=== PATIENT | female | born 1990 | race Caucasian/White ===

== ENCOUNTER 2016-10-01 09:51 | Emergency (ER) | payer OTHER ==
[~2016-10-01] VITALS: Wt 89.0 kg
[2016-10-01] MEDS ORDERED: SOD CHLORIDE 0.9% 1,000 ML IV STA (10:18)
[2016-10-01] MEDS ORDERED: morphine 4 MG/ML VIAL IV STA (10:18)
[2016-10-01] MEDS ORDERED: ONDANSETRON 4 MG INJ IV STA (10:18)
[2016-10-01 10:46] LABS: BASOPHILS % 0.3 % (0.0-2.0); EOSINOPHILS % 0.2 % (0.0-7.0); HEMATOCRIT 42.8 % (37.0-47.0); HEMOGLOBIN 14.5 g/dl (12.0-16.0); LYMPHOCYTES # 1.7 10^3/ul (0.8-2.9); MEAN CORPUSCULAR HEMOGLOBIN 29.8 pg (29.0-33.0); MEAN CORPUSCULAR HGB CONC 33.9 g/dl (32.0-37.0); MEAN CORPUSCULAR VOLUME 87.9 fl (82.0-101.0); MEAN PLATELET VOLUME 11.1 fl (7.4-10.4); MONOCYTE # 0.4 10^3/ul (0.3-0.9); MONOCYTES % 4.1 % (0.0-11.0); NEUTROPHIL # 8.2 10^3/ul (1.6-7.5); NEUTROPHILS % 79.2 % (39.0-77.0); PLATELET COUNT 261 10^3/UL (140-415); RED BLOOD COUNT 4.87 10^6/ul (4.20-5.40); RED CELL DISTRIBUTION WIDTH 13.2 % (11.5-14.5); WHITE BLOOD COUNT 10.4 10^3/ul (4.8-10.8)
[2016-10-01 10:48] LABS: ADD SCAN DIFF NO
[2016-10-01 11:08] LABS: ALBUMIN 5.3 g/dl (3.3-4.9); ALBUMIN/GLOBULIN RATIO 1.35; BILIRUBIN,INDIRECT 0.3 mg/dl (0-1.1); BILIRUBIN,TOTAL 0.3 mg/dl (0.2-1.3); CREATININE 0.76 mg/dl (0.44-1.00); TOTAL PROTEIN 9.2 g/dl (6.1-8.1)
--- NOTE | 2016-10-01 11:16 | RADRPT ---
PROCEDURE: Abdominal Ultrasound (right upper quadrant). CLINICAL INDICATION: Right upper quadrant pain TECHNIQUE: Multiple real-time longitudinal and transverse images of the right upper quadrant of th e abdomen were acquired utilizing a curved array transducer. Images were reviewed on a high-resoluti on PACS workstation. COMPARISON: None FINDINGS: The liver is normal in size and echogenicity. No focal masses are identified. There is no evidenc e of intra or extrahepatic ductal dilatation. The common bile duct measures 5.2 mm in diameter. The gallbladder is surgically absent. The visualized portions of the pancreas are unremarkable with obscuration of the tail of the pancrea s. No free fluid is identified. There is no evidence of right hydronephrosis or renal calcification. The right kidney measures 10.7 cm in length. The visualized portions of the aorta and inferior vena cava are within normal limits. IMPRESSION: 1. Status post cholecystectomy. 2. Otherwise unremarkable right upper quadrant ultrasound. RPTAT: KK .Matias Henao MD, MD Date Time Electronically viewed and signed by .Matias Henao MD, on 10/01/2016 11:16 .B/
[2016-10-01] MEDS ORDERED: KETOROLAC 30 MG INJ IV STA (11:29)
[2016-10-01 11:36] LABS: ADD UMIC NO; UR ASCORBIC ACID 40 mg/dL (NEGATIVE); UR BILIRUBIN (Dip) NEGATIVE (NEGATIVE); UR BLOOD (Dip) NEGATIVE (NEGATIVE); UR CLARITY SLIGHTLY CLOUDY (CLEAR); UR COLOR YELLOW (YELLOW); UR GLUCOSE (Dip) NEGATIVE (NEGATIVE); UR KETONES (Dip) NEGATIVE (NEGATIVE); UR LEUKOCYTE ESTERASE (Dip) NEGATIVE Leu/ul (NEGATIVE); UR MUCUS FEW /HPF (NONE SEEN); UR NITRITE (Dip) NEGATIVE (NEGATIVE); UR RBC 1 /HPF (0-5); UR SPECIFIC GRAVITY (Dip) 1.036 (1.003-1.030); UR SQUAMOUS EPITHELIAL CELL FEW /HPF (FEW); UR TOTAL PROTEIN (Dip) NEGATIVE (NEGATIVE); UR UROBILINOGEN (Dip) NEGATIVE (NEGATIVE)
[2016-10-01] MEDS ORDERED: HYDR-906 PO (11:43)
[2016-10-01] MEDS ORDERED: MAG355OR14 PO (11:43)
[2016-10-01] MEDS ORDERED: FAMO-18 PO (11:45)
--- NOTE | 2016-10-01 11:51 | ERD ---
ER Documentation Chief Complaint Date/Time DATE: 10/01/16 TIME: 11:49 Chief Complaint EPIGASTRIC PAIN, RADIATES TO BACK, N/V HPI Patient is a 26-year-old female who presents with epigastric pain that radiates to her back with nausea and vomiting. She states it feels like a gallbladder attack she has had gallbladder problems in the past but she is already had her gallbladder removed. She states the symptoms began at 6 AM this morning. She admits to nausea and she vomited one time. Also admits to nonbloody diarrhea. She states she took Tylenol but it did not help. Her last menstrual period was September 02. She denies any dysuria hematuria or urinary frequency. ROS All systems reviewed and are negative except as per history of present illness. Medications Home Meds Active Scripts Famotidine* (Pepcid*) 20 Mg Tablet, 20 MG PO BID, #30 TAB Prov:CHAPARRO PRADO PA-C 10/01/16 Hydrocodone/Acetaminophen (Redfield 5-325 Tablet) 1 Each Tablet, 1 EACH PO Q6, #20 TAB Prov:CHAPARRO PRADO PA-C 10/01/16 Mag Hydrox/Al Hydrox/Simeth (Maalox Advanced Suspension) 355 Ml Oral.susp, 355 ML PO QAM for 7 Days Prov:CHAPARRO PRADO PA-C 10/01/16 Reported Medications [None] No Conflict Check 09/30/14 Allergies Allergies: Coded Allergies: No Known Allergy (Unverified , 09/30/14) PMhx/Soc History of Surgery: No Anesthesia Reaction: No Hx Neurological Disorder: No Hx Respiratory Disorders: No Hx Cardiac Disorders: No Hx Psychiatric Problems: No Hx Miscellaneous Medical Probl: No Hx Alcohol Use: No Hx Substance Use: No Hx Tobacco Use: No Smoking Status: Never smoker FmHx Family History: No diabetes Physical Exam Vitals Vital Signs Date Time Temp Pulse Resp B/P Pulse Ox O2 Delivery O2 Flow Rate FiO2 10/01/16 09:54 97.8 72 17 129/75 98 Physical Exam General: well developed, well nourished, alert, nontoxic, no distress Head: normocephalic, atraumatic Neck: Supple, nontender, no lymphadenopathy, no midline tenderness Respiratory: Clear to auscaultation bilaterally, speaks in full sentences, no use of accesory muscles or labored breathing, no rales, ronchi, or wheezing Cardiovascular: RRR, No murmurs GI: soft, non tender, non distended, negative murphys sign, negative mcburneys point tenderness, no cva tenderness bilaterally, no rebound or guarding Back: no midline tenderness, no step offs or bony abnormalities, sensation to light touch in tact Result Diagram: 10/01/16 1032 10/01/16 1032 Results 24 hrs Laboratory Tests Test 10/01/16 10:30 10/01/16 10:32 Urine Color YELLOW Urine Clarity SLIGHTLY CLOUDY Urine pH 5.0 Urine Specific [place] 1.036 Urine Ketones NEGATIVEmg/dL Urine Nitrite NEGATIVEmg/dL Urine Bilirubin NEGATIVEmg/dL Urine Urobilinogen NEGATIVEmg/dL Urine Leukocyte Esterase NEGATIVELeu/ul Urine Microscopic RBC 1/HPF Urine Microscopic WBC 1/HPF Urine Squamous Epithelial Cells FEW/HPF Urine Mucus FEW/HPF Urine Hemoglobin NEGATIVEmg/dL Urine Glucose NEGATIVEmg/dL Urine Total Protein NEGATIVEmg/dl White Blood Count 10.410^3/ul Red Blood Count 4.8710^6/ul Hemoglobin 14.5g/dl Hematocrit 42.8% Mean Corpuscular Volume 87.9fl Mean Corpuscular Hemoglobin 29.8pg Mean Corpuscular Hemoglobin Concent 33.9g/dl Red Cell Distribution Width 13.2% Platelet Count 86679^3/UL Mean Platelet Volume 11.1fl Neutrophils % 79.2% Lymphocytes % 16.0% Monocytes % 4.1% Eosinophils % 0.2% Basophils % 0.3% Nucleated Red Blood Cells % 0.0/100WBC Neutrophils # 8.210^3/ul Lymphocytes # 1.710^3/ul Monocytes # 0.410^3/ul Eosinophils # 0.010^3/ul Basophils # 0.010^3/ul Nucleated Red Blood Cells # 0.010^3/ul Sodium Level 140mmol/L Potassium Level 4.0mmol/L Chloride Level 105mmol/L Carbon Dioxide Level 22mmol/L Anion Gap 17 Blood Urea Nitrogen 11mg/dl Creatinine 0.76mg/dl Glucose Level 119mg/dl Calcium Level 10.0mg/dl Total Bilirubin 0.3mg/dl Direct Bilirubin 0.00mg/dl Indirect Bilirubin 0.3mg/dl Aspartate Amino Transf (AST/SGOT) 32IU/L Alanine Aminotransferase (ALT/SGPT) 44IU/L Alkaline Phosphatase 102IU/L Total Protein 9.2g/dl Albumin 5.3g/dl Globulin 3.90g/dl Albumin/Globulin Ratio 1.35 Lipase 96U/L Current Medications Medications (Trade) Dose Ordered Sig/Mila Route PRN Reason Start Time Stop Time Status Last Admin Dose Admin Sodium Chloride (NS) 1,000 ml @ 1,000 mls/hr Q1H STAT IV 10/01/16 10:18 10/01/16 11:17 DC 10/01/16 10:40 Morphine Sulfate (morphine) 4 mg ONCE STAT IV 10/01/16 10:18 10/01/16 10:21 DC 10/01/16 10:40 Ondansetron HCl (Zofran Inj) 4 mg ONCE STAT IV 10/01/16 10:18 10/01/16 10:21 DC 10/01/16 10:40 Ketorolac Tromethamine (Toradol) 30 mg ONCE STAT IV 10/01/16 11:29 10/01/16 11:30 DC 10/01/16 11:34 Procedures/MDM Patient has abdominal pain. Her vital signs are normal and her exam is normal. She is already had her gallbladder removed which was confirmed on ultrasound which was otherwise unremarkable. The rest of her labs and workup was also unremarkable. She was given prescription for Pepcid, Maalox, and Redfield. She was also given copies of all the labs and ultrasound reports she can follow-up with primary care. Recommended this patient follow up with her primary care doctor within 48 hours or return to the emergency room for any worsening of symptoms. However this time I do believe there is suitable for outpatient management. I answered all their questions and they agreed with the plan and were discharged home. Departure Diagnosis: Primary Impression: Abdominal pain Condition: Stable Patient Instructions: Abdominal Pain Additional Instructions: Call your primary care doctor TOMORROW for an appointment during the next 1-2 days.See the doctor sooner or return here if your condition worsens before your appointment time. CHAPARRO PRADO PA-C Oct 01, 2016 11:51
[2016-10-01 11:55] VITALS: BP 123/77; PULSE 60; RESP 20; TEMP 98.3
== END 2016-10-01 11:57 | disposition home or self-care (01) ==
LOC: FTE 09:51
DX: R10.13 Epigastric pain (principal); R11.2 Nausea with vomiting, unspecified
CPT/HCPCS: 36415; 76705; 80053; 81001; 83690; 85025; 96374; 96375; J1885; J2270; J2405; J7030; Z7502; 81003